=== PATIENT | female | born 1935 | race Caucasian/White ===

== ENCOUNTER 2023-05-12 21:24 | Inpatient (IN) | payer OTHER, MEDICAID ==
[~2023-05-12] VITALS: Ht 162.6 cm; Wt 59.0 kg
[2023-05-12 21:35] VITALS: BP 149/85; PULSE 87; RESP 15; TEMP 98; O2SAT 98
[2023-05-12] MEDS ORDERED: MORPHINE SULFATE 2 MG/ML SYR IM STA (22:08)
[2023-05-13] MEDS ORDERED: ceFAZolin 1,000 MG VIAL ONE (06:37)
[2023-05-13 08:00] VITALS: O2SAT 97
[2023-05-13] MEDS ORDERED: ONDANSETRON 4 MG/2 ML VIAL IM/IVP PRN (08:00)
[2023-05-13] MEDS ORDERED: ACETAMINOPHEN 325 MG TAB PO PRN (08:00)
[2023-05-13] MEDS ORDERED: ZOLPIDEM 5 MG TAB PO PRN (08:00)
[2023-05-13] MEDS ORDERED: DOCUSATE SODIUM 100 MG GELCAP PO PRN (08:00)
[2023-05-13] MEDS ORDERED: guaiFENesin DM 200/20 MG-10 ML 10 ML UDC PO PRN (08:00)
[2023-05-13] MEDS ORDERED: POTASSIUM CHLORIDE 10 MEQ TABER PO PRN (08:00)
[2023-05-13] MEDS ORDERED: HYDROcodone/APAP 7.5/325 MG 1 TAB PO PRN (08:00)
[2023-05-13] MEDS: DEXT 5% /NACL 0.9% 1,000 ML IV SCH ×3 (08:23→21:19)
[2023-05-13 09:21] LABS: BASOPHILS % (AUTO) 0.4 % (0.0-2.0); EOSINOPHILS # (AUTO) 0.1 K/uL (0-0.4); EOSINOPHILS % (AUTO) 1.6 % (0.0-4.0); HEMATOCRIT 37.8 % (36-48); HEMOGLOBIN 12.9 g/dL (12.0-16.0); LYMPHOCYTES # (AUTO) 1.8 K/uL (2.5-16.5); LYMPHOCYTES % (AUTO) 24.7 % (20.5-51.1); MEAN CORPUSCULAR HEMOGLOBIN 29 pg (27-31); MEAN CORPUSCULAR HGB CONC 34 g/dL (33-37); MEAN CORPUSCULAR VOLUME 84.8 fL (80-94); MONOCYTES # (AUTO) 0.6 K/uL (0.8-1.0); MONOCYTES % (AUTO) 8.6 % (1.7-9.3); NEUTROPHILS # (AUTO) 4.7 K/uL (1.8-7.7); NEUTROPHILS % (AUTO) 64.7 % (42.2-75.2); PLATELET COUNT (AUTO) 212 K/uL (140-450); RED BLOOD CELL COUNT(AUTO) 4.45 MIL/uL (4.20-5.40); RED CELL DISTRIBUTION WIDTH 14.8 % (11.6-13.7); WHITE BLOOD COUNT (AUTO) 7.2 K/uL (4.8-10.8)
[2023-05-13 09:33] LABS: INR 1.18 (0.8-1.2); PARTIAL THROMBOPLASTIN TIME 30.3 secs (22-35.6); PROTHROMBIN TIME 12.3 secs (10.8-13.4)
[2023-05-13 09:48] LABS: LACTIC ACID 1.2 mmol/L (0.4-2.0)
[2023-05-13] MEDS: PANTOPRAZOLE 40 MG INJ VIAL IVP SCH (09:52)
[2023-05-13 09:59] LABS: AMYLASE 93 U/L (25-115); CHOL/HDL RATIO 3.2 (1-4.5); CHOLESTEROL 194 mg/dL (<200); FREE T4 (FREE THYROXINE) 1.09 ng/dL (0.76-1.46); HDL CHOLESTEROL 60 mg/dL (40-60); LDL (CALC) 116 mg/dL (60-100); LIPASE 292 U/L (73-393); THYROID STIMULATING HORMONE 2.53 uIU/mL (0.34-3.74); TRIGLYCERIDES 94 mg/dL (30-150)
[2023-05-13 10:34] LABS: ALANINE AMINOTRANSFERASE 26 U/L (12-78); ALBUMIN 3.4 g/dL (3.4-5.0); ALKALINE PHOSPHATASE 130 U/L (50-136); ANION GAP 15.3 (8-16); ASPARTATE AMINOTRANSFERASE 28 U/L (15-37); CALCIUM 9.3 mg/dL (8.5-10.1); CARBON DIOXIDE 26.1 mmol/L (21-32); CHLORIDE 102 mmol/L (98-107); CREATININE 0.8 mg/dL (0.6-1.3); GLUCOSE 109 mg/dL (74-106); MAGNESIUM 1.9 mg/dL (1.8-2.4); PHOSPHORUS 4.3 mg/dL (2.5-4.9); POTASSIUM 4.4 mmol/L (3.5-5.1); SODIUM SERUM 139 mmol/L (136-145); TOTAL BILIRUBIN 1.1 mg/dL (0.0-1.0); TOTAL PROTEIN, SERUM 7.6 g/dL (6.4-8.2); UREA NITROGEN, BLOOD 32 mg/dL (7-18)
[2023-05-13 16:35] VITALS: PULSE 77; RESP 18; TEMP 97.5; O2SAT 97
[2023-05-13] MEDS ORDERED: DONE5TAB6 PO (18:28)
[2023-05-13] MEDS ORDERED: DOCU100T31 GT (18:28)
[2023-05-13] MEDS ORDERED: CHOL200035 GT (18:28)
[2023-05-13] MEDS ORDERED: LANS15EC28 GT (18:28)
[2023-05-13] MEDS ORDERED: SENN-74 PO (18:28)
[2023-05-13] MEDS ORDERED: QUET25TA GT (18:28)
[2023-05-13] MEDS ORDERED: MEMA5TAB GT (18:28)
[2023-05-13 20:00] VITALS: BP 132/75; PULSE 69; RESP 18; TEMP 97.4; O2SAT 99
[2023-05-14] MEDS: Z-GUARD PASTE TP SCH ×2 (02:06→13:00)
[2023-05-14 04:00] VITALS: BP 130/78; PULSE 71; RESP 18; TEMP 98.6; O2SAT 99
[2023-05-14 06:37] LABS: BASOPHILS % (AUTO) 0.5 % (0.0-2.0); EOSINOPHILS # (AUTO) 0.2 K/uL (0-0.4); EOSINOPHILS % (AUTO) 3.1 % (0.0-4.0); HEMOGLOBIN 11.5 g/dL (12.0-16.0); LYMPHOCYTES # (AUTO) 1.5 K/uL (2.5-16.5); MEAN CORPUSCULAR HEMOGLOBIN 29 pg (27-31); MEAN CORPUSCULAR HGB CONC 34 g/dL (33-37); MEAN CORPUSCULAR VOLUME 85.5 fL (80-94); MONOCYTES # (AUTO) 0.7 K/uL (0.8-1.0); MONOCYTES % (AUTO) 9.8 % (1.7-9.3); NEUTROPHILS # (AUTO) 4.3 K/uL (1.8-7.7); NEUTROPHILS % (AUTO) 64.6 % (42.2-75.2); PLATELET COUNT (AUTO) 194 K/uL (140-450); RED BLOOD CELL COUNT(AUTO) 3.98 MIL/uL (4.20-5.40); RED CELL DISTRIBUTION WIDTH 14.7 % (11.6-13.7); WHITE BLOOD COUNT (AUTO) 6.7 K/uL (4.8-10.8)
[2023-05-14 06:49] LABS: ANION GAP 11.1 (8-16); CALCIUM 8.7 mg/dL (8.5-10.1); CARBON DIOXIDE 25.5 mmol/L (21-32); CHLORIDE 110 mmol/L (98-107); CREATININE 0.7 mg/dL (0.6-1.3); GLUCOSE 120 mg/dL (74-106); POTASSIUM 3.6 mmol/L (3.5-5.1); SODIUM SERUM 143 mmol/L (136-145); UREA NITROGEN, BLOOD 26 mg/dL (7-18)
[2023-05-14 07:08] LABS: HEMOGLOBIN A1C 5.3 % (4.8-5.6); T4 (THYROXINE) 9.4 ug/dL (4.5-12.0)
[2023-05-14] MEDS: PANTOPRAZOLE 40 MG INJ VIAL IVP SCH (11:27)
[2023-05-14] MEDS: DEXT 5% /NACL 0.9% 1,000 ML IV SCH (15:04)
[2023-05-14 16:00] VITALS: BP 139/64; PULSE 66; RESP 20; TEMP 97.1; O2SAT 99
[2023-05-14 20:00] VITALS: BP 159/64; PULSE 66; PULSE 78; RESP 16; TEMP 98.2; O2SAT 98; O2SAT 99
[2023-05-15] MEDS: Z-GUARD PASTE TP SCH ×2 (01:24→13:18)
[2023-05-15 04:00] VITALS: BP 150/74; PULSE 73; RESP 16; TEMP 97.7; O2SAT 98
[2023-05-15] MEDS: DEXT 5% /NACL 0.9% 1,000 ML IV SCH (04:49)
[2023-05-15 05:40] LABS: BASOPHILS % (AUTO) 0.3 % (0.0-2.0); EOSINOPHILS # (AUTO) 0.2 K/uL (0-0.4); EOSINOPHILS % (AUTO) 2.6 % (0.0-4.0); HEMATOCRIT 34.8 % (36-48); HEMOGLOBIN 11.8 g/dL (12.0-16.0); LYMPHOCYTES # (AUTO) 0.7 K/uL (2.5-16.5); LYMPHOCYTES % (AUTO) 10.4 % (20.5-51.1); MEAN CORPUSCULAR HEMOGLOBIN 29 pg (27-31); MEAN CORPUSCULAR HGB CONC 34 g/dL (33-37); MEAN CORPUSCULAR VOLUME 84.8 fL (80-94); MONOCYTES # (AUTO) 0.5 K/uL (0.8-1.0); MONOCYTES % (AUTO) 7.5 % (1.7-9.3); NEUTROPHILS # (AUTO) 5.5 K/uL (1.8-7.7); NEUTROPHILS % (AUTO) 79.2 % (42.2-75.2); PLATELET COUNT (AUTO) 210 K/uL (140-450); RED BLOOD CELL COUNT(AUTO) 4.11 MIL/uL (4.20-5.40); RED CELL DISTRIBUTION WIDTH 14.8 % (11.6-13.7)
[2023-05-15 05:59] LABS: ANION GAP 13.2 (8-16); CALCIUM 8.8 mg/dL (8.5-10.1); CARBON DIOXIDE 23.8 mmol/L (21-32); CHLORIDE 109 mmol/L (98-107); CREATININE 0.7 mg/dL (0.6-1.3); GLUCOSE 123 mg/dL (74-106); SODIUM SERUM 143 mmol/L (136-145); UREA NITROGEN, BLOOD 23 mg/dL (7-18)
[2023-05-15 08:00] VITALS: PULSE 74; RESP 17; O2SAT 99
[2023-05-15] MEDS ORDERED: POTASSIUM CHLORIDE 20% 40 MEQ/15 ML UDC PO PRN (08:35)
[2023-05-15] MEDS: PANTOPRAZOLE 40 MG INJ VIAL IVP SCH (09:37)
[2023-05-15] MEDS ORDERED: ALGINATE DRESSING MC PRN (11:30)
[2023-05-15] MEDS ORDERED: FOAM DRESSING TP PRN (11:30)
[2023-05-15 14:27] VITALS: BP 133/55; TEMP 97.2
[2023-05-18] MEDS ORDERED: FOAM DRESSING TP SCH (09:00)
[2023-05-18] MEDS ORDERED: ALGINATE DRESSING MC SCH (09:00)
== END 2023-05-15 18:00 | DRG 394 ==
LOC: MED 21:24 → MMU 05-13 07:53 → MTU 05-13 11:54
PROVIDERS: ADMIT Family Medicine; ATTEND Family Medicine
PROC: 0D20XUZ Change Feeding Device in Upper Intestinal Tract, External Approach (ICD-10-PCS; principal; 2023-05-13)
PROC: 0DP6XUZ Removal of Feeding Device from Stomach, External Approach (ICD-10-PCS; 2023-05-14)
DX: K94.23 Gastrostomy malfunction (principal); L03.311 Cellulitis of abdominal wall; R13.10 Dysphagia, unspecified; E86.0 Dehydration; E87.6 Hypokalemia; I70.0 Atherosclerosis of aorta; K94.22 Gastrostomy infection; Z96.641 Presence of right artificial hip joint; M43.8X2 Other specified deforming dorsopathies, cervical region; M06.9 Rheumatoid arthritis, unspecified; D63.8 Anemia in other chronic diseases classified elsewhere; Y83.3 Surgical operation with formation of external stoma as the cause of abnormal reaction of the patient, or of later complication, without mention of misadventure at the time of the procedure; K21.9 Gastro-esophageal reflux disease without esophagitis; F03.90 Unspecified dementia, unspecified severity, without behavioral disturbance, psychotic disturbance, mood disturbance, and anxiety; Z90.49 Acquired absence of other specified parts of digestive tract; Y92.128 Other place in nursing home as the place of occurrence of the external cause
CPT/HCPCS: 36415; 71045; 80048; 80053; 82150; 83036; 83605; 83690; 83735; 83880; 84100; 84436; 84439; 84443; 84479; 84484; 85025; 85610; 85730; 87040; 87081; 96372; 99285; C9113; J0690; J0696; J2270; J7060; Q0092; Q9967